=== PATIENT | female | born 1955 ===

== ENCOUNTER 2022-11-05 13:02 | Outpatient (REF) | payer OTHER, SELFPAY ==
--- NOTE | 2022-11-05 14:18 | MHC.AU.MED ---
Medical Clearance for Hearing Instrumentation Date: 11/05/22 Patient Name: Luisa Dewitt Date of : 1955 Primary Care Provider: Prabhjot Teixeira MD We have seen your patient on 11/05/22 and have determined that they are a candidate for amplification (See accompanying report). Specifically, they would benefit from: Hearing aid use in both ears There is a statute that addresses Medical Evaluation Requirements prior to fitting a patient with a hearing aid. According to [place] statute 265 CMR:6.03(1), (a) General. Except as provided in 265 CMR 6.03(1)(b), a electromechanical engineer shall not sell a hearing aid unless the prospective user has presented to the electromechanical engineer a written statement signed by a licensed physician that states that the patient's hearing loss has been medically evaluated and the patient may be considered a candidate for a hearing aid. The medical evaluation must have taken place within the preceding six months. Please note: Due to the [place] Statute referenced above, we cannot accept a signature other than that of a licensed physician. [employer] and PA signatures cannot be accepted. I am in agreement with the above recommendation. There is no medical contraindication for hearing instrumentation. Physician Signature Date Physician Name (Printed)
== END 2022-11-05 13:03 | disposition home or self-care (01) ==
LOC: HO.SH 13:02
PROVIDERS: PCP Internal Medicine; Visit Provider Internal Medicine
DX: Z01.118 Encounter for examination of ears and hearing with other abnormal findings (principal); H90.3 Sensorineural hearing loss, bilateral
CPT/HCPCS: 92557